=== PATIENT | female | born 1990 | race Caucasian/White ===

== ENCOUNTER 2021-02-15 12:47 | Outpatient (REF) | payer OTHER, SELFPAY ==
[2021-02-16 08:55] LABS: SARS COV2 PCR INHOUSE NEGATIVE (Negative)
== END 2021-02-15 12:48 | disposition home or self-care (01) ==
LOC: HO.LAB 12:47
PROVIDERS: Visit Provider Internal Medicine
DX: Z20.822 Contact with and (suspected) exposure to COVID-19 (principal)
CPT/HCPCS: C9803; U0003

== ENCOUNTER 2021-02-20 11:38 | Outpatient (REF) | payer OTHER, SELFPAY ==
[2021-02-20 12:02] LABS: COVID-19 Test Negative (Negative); IDNOW Serial# 08D9AD1C
== END 2021-02-20 11:39 | disposition home or self-care (01) ==
LOC: HO.LAB 11:38
PROVIDERS: Visit Provider Internal Medicine
DX: Z20.822 Contact with and (suspected) exposure to COVID-19 (principal)
CPT/HCPCS: 36415; 87635; C9803

== ENCOUNTER 2021-03-30 11:15 | Outpatient (REF) | payer OTHER, SELFPAY | END 2021-03-30 11:16 | disposition home or self-care (01) | LOC: HO.LAB 11:15 | PROVIDERS: Visit Provider Internal Medicine | DX: Z20.822 Contact with and (suspected) exposure to COVID-19 (principal) | CPT/HCPCS: C9803; U0003; U0005 ==